=== PATIENT | female | born 1985 | race Caucasian/White ===

== ENCOUNTER → 2016-10-19 | Outpatient (CLI) | payer OTHER | LOC: FIMAGING 13:35 | PROVIDERS: ATTEND Obstetrics & Gynecology | DX: Z34.02 Encounter for supervision of normal first pregnancy, second trimester (principal); Z3A.19 19 weeks gestation of pregnancy ==

== ENCOUNTER → 2016-12-21 | Outpatient (CLI) | payer OTHER | LOC: FIMAGING 12:54 | PROVIDERS: ATTEND Obstetrics & Gynecology | DX: Z34.83 Encounter for supervision of other normal pregnancy, third trimester (principal); Z3A.28 28 weeks gestation of pregnancy ==

== ENCOUNTER 2017-03-12 17:26 | Inpatient (IN) | payer OTHER ==
[2017-03-12] MEDS ORDERED: OLIVE OIL 118 ML BTL MISC PRN (18:18)
[2017-03-12] MEDS ORDERED: EPSOM SALT 454 GM TP PRN (18:18)
[2017-03-12] MEDS ORDERED: TERBUTALINE SULFATE 1 MG/ML VIAL IV PRN (18:18)
[2017-03-12] MEDS ORDERED: LR 1,000 ML IV PRN (18:18)
[2017-03-12] MEDS ORDERED: OXYTOCIN/RINGERS LACTATE 1,000 ML IV PRN (18:18)
--- NOTE | 2017-03-12 18:39 | GHP ---
[f rep st] PREOP HISTORY AND PHYSICAL DATE OF ADMISSION: 03/12/2017 CHIEF COMPLAINT: Labor. HPI: The patient is a 31-year-old, G2, P1, female who is at 40-2/7 weeks' gestation by 9 week ultrasound, who presents with complaints of painful contractions. She is anay every 5-7 minutes. She has an uncomplicated . PAST MEDICAL HISTORY: She has no significant medical problems. PAST SURGICAL HISTORY: She has no surgical history. PAST OBSTETRICAL HISTORY: She has 1 previous that was 7 pounds. REVIEW OF SYSTEMS: Positive for bloody show and painful contractions. PHYSICAL EXAMINATION: VITAL SIGNS: Stable. GENERAL: She is uncomfortable with contractions. ABDOMEN: Gravid, nontender. : Her cervical exam is 5, complete, and 0. heart tones are in the 130s with a moderate variability and positive accelerations. LABS: Significant for A positive, antibody screen negative, rubella non immune , RPR nonreactive, hepatitis B surface antigen negative, HIV negative, gonorrhea and chlamydia negative. 1-hour Glucola not listed and GBS is negative on 02/08. ASSESSMENT/PLAN: This is a 31-year-old, G2, P1, female who is at 40-2/7 weeks' gestation in active labor. well-being is reassuring. GBS is negative. Expected . /[id number]/MODL MTDD
[2017-03-12 18:54] LABS: % IMMATURE GRANULYOCYTES 0.6 % (0.0-1.1); ABSOLUTE IMMATURE GRANULOCYTES 0.06 10^3/uL (0.00-0.10); ADD DIFF? NO; ADD MORPH? NO; ADD SCAN? NO; ATYPICAL LYMPHOCYTE FLAG 0 (0-99); FRAGMENT RBC FLAG 0 (0-99); HEMATOCRIT 39.6 % (38.0-47.0); HEMOGLOBIN 13.4 g/dL (12.6-16.3); LEFT SHIFT FLG 0 (0-99); LIPEMIA HEMOLYSIS FLAG 90 (0-99); MEAN CELL HEMOGLOBIN 31.3 pg (27.9-34.1); MEAN CELL HEMOGLOBIN CONCENTR. 33.8 g/dL (32.4-36.7); MEAN CELL VOLUME 92.5 fL (81.5-99.8); MEAN PLATELET VOLUME 11.1 fL (8.7-11.7); PLATELET CLUMPS FLAG 0 (0-99); PLATELET COUNT 111 10^3/uL (150-400); RED BLOOD CELL COUNT 4.28 10^6/uL (4.18-5.33); RED CELL DISTRIBUTION WIDTH 14.5 % (11.5-15.2)
--- NOTE | 2017-03-12 22:07 | OBPROG ---
OBG Labor Progress Note Assessment/Plan: Assessment: 31 yo female, @ 40 2/7, active labor, doing well Plan: 03/12/17 22:05 FWB reassuring. GBS neg. Labor progressing. Expect . Subjective: 31 yo female, @ 40 2/7, active labor, doing well-using hypobirthing technique. Objective: 03/12/17 18:15 Patient ABO/Rh A POSITIVE 03/12/17 18:15 VSS - SVE Dilation (cm): 8 Effacement (%): 100 Station: 0 Meyer Current Contraction Pattern: Regular FHR (bpm): 110 FHR Pattern Variability: Moderate FHR Category: 2 Oxytocin Orders Assessment - Pre-Induction/Augmentation Assessment Gestational Age: 40 week(s) and 2 day(s) ICD10 Worksheet Patient Problems: Problems Problem Status Onset Labor established Acute
[2017-03-12] MEDS ORDERED: TERBUTALINE SULFATE 1 MG/ML VIAL ONE (22:36)
[2017-03-12] MEDS ORDERED: LIDOCAINE 1% 300 MG/30 ML SDV ONE (22:36)
[2017-03-12] MEDS ORDERED: AMMONIA AROMATIC 1 EACH AMP IH ONE (22:36)
[2017-03-12] MEDS ORDERED: OLIVE OIL 118 ML BTL ONE (22:36)
[2017-03-12] MEDS ORDERED: OXYTOCIN 10 UNIT/ML VIAL ONE (22:37)
[2017-03-12] MEDS ORDERED: MISOPROSTOL 200 MCG TAB ONE (22:37)
[2017-03-13] MEDS ORDERED: ACETAMINOPHEN 325 MG TAB PO PRN
[2017-03-13] MEDS ORDERED: HYDROCORTISONE 0.5% CREAM TP PRN
[2017-03-13] MEDS ORDERED: SIMETHICONE 80 MG TAB CHEW PO PRN
--- NOTE | 2017-03-13 | OBDEL ---
Info Type: Vaginal GBS+: No Indications for Delivery: Spontaneous Labor, SROM Vaginal Delivery - Labor and Delivery Onset of Contractions Date: 03/12/17 Onset of Contractions Time: 11:00 Onset of Contractions Type: Spontaneous Rupture of Membranes Date: 03/12/17 Rupture of Membranes Time: 23:00 Rupture of Membranes Type: Spontaneous Amniotic Fluid Color: Clear Dilation Complete Date: 03/12/17 Dilation Complete Time: 22:57 Placenta Delivery Date: 03/12/17 Placenta Delivery Time: 23:30 Total Hours of Labor: 12 Laceration: 2nd Degree Repair: 3-0, Vicryl Vaginal Sponge Count Correct: Yes Vaginal Needle Count Correct: Yes Vaginal Sweep Performed: No EBL: 300 ml Delivery Events: None - Medications Labor Augmentation/Induction Methods Used: None [place] Data [place] Delivery Date: 03/12/17 Delivery Time: 23:20 RANDA: 03/10/17 Gestational Age: 40 week(s) and 3 day(s) Sex of Infant: Female Score (1 Min): 8 Score (5 Min): 9 ICD10 Worksheet Patient Problems: Problems Problem Status Onset Labor established Acute
--- NOTE | 2017-03-13 00:02 | OBGCSDC ---
General Delivery Information - General Info : 2 Para: 1 Abortions: 0 Delivery Physician/CNM: Fide Villarreal Admission Date: 03/12/17 Labs: Patient ABO/Rh A POSITIVE 03/12/17 18:15 Hct 39.6 % (38.0-47.0) 03/12/17 18:15 Vaginal - Diagnosis Labor: Spontaneous Rupture of Membranes Type: Spontaneous Amniotic Fluid Color: Clear Laceration: 2nd Degree Repair: 3-0, Vicryl Delivery Events: None - Hospital Course Antepartum: none Intrapartum: none : none - Delivery Type: Vaginal EBL: 300 ml [place] Data Meyer Delivery Date: 03/12/17 Delivery Time: 23:20 RANDA: 03/10/17 Gestational Age: 40 week(s) and 3 day(s) Sex of : Female Score (1 Min): 8 Score (5 Min): 9
[2017-03-13] MEDS: IBUPROFEN 600 MG TAB PO PRN ×3 (00:05→11:44)
[2017-03-13] MEDS ORDERED: MEASLES,MUMPS&RUBELLA VACC/PF 0.5 ML VIAL SC ONE (11:02)
--- NOTE | 2017-03-13 11:02 | OBPP ---
Progress Note Assessment/Plan: Assessment: Pt is a 31 y/o female PPD#1 s/p - doing well Plan: 1) Routine PP care 2) Mild thrombocytopenia w/ platelet count of 111K on admission - will recheck to assure improving trend, BP's normal and no PIH symptoms 3) A+, rubella NI, will order MMR. 03/13/17 11:01 Subjective: Pt is feeling well, ambulating, voiding, lochia diminishing and pain well controlled. Objective: 03/12/17 18:15 Patient ABO/Rh A POSITIVE 03/12/17 18:15 Temp Pulse Resp BP Pulse Ox 36.6 C 82 16 98/61 L 97 03/13/17 08:30 03/13/17 08:30 03/13/17 08:30 03/13/17 08:30 03/13/17 08:30 Uterine Position/Fundal Height: At Umbilicus Uterine Tone: Firm
[2017-03-13] MEDS: DOCUSATE SODIUM 100 MG CAP PO PRN (11:44)
[2017-03-13 11:59] LABS: % IMMATURE GRANULYOCYTES 0.5 % (0.0-1.1); ABSOLUTE IMMATURE GRANULOCYTES 0.06 10^3/uL (0.00-0.10); ADD DIFF? NO; ADD MORPH? NO; ADD SCAN? NO; ATYPICAL LYMPHOCYTE FLAG 0 (0-99); FRAGMENT RBC FLAG 0 (0-99); HEMATOCRIT 36.1 % (38.0-47.0); HEMOGLOBIN 12.4 g/dL (12.6-16.3); LEFT SHIFT FLG 10 (0-99); LIPEMIA HEMOLYSIS FLAG 90 (0-99); MEAN CELL HEMOGLOBIN CONCENTR. 34.3 g/dL (32.4-36.7); PLATELET CLUMPS FLAG 0 (0-99); PLATELET COUNT 117 10^3/uL (150-400); RED BLOOD CELL COUNT 3.88 10^6/uL (4.18-5.33); RED CELL DISTRIBUTION WIDTH 14.5 % (11.5-15.2)
[2017-03-14] MEDS: IBUPROFEN 600 MG TAB PO PRN ×2 (00:07→06:03)
--- NOTE | 2017-03-14 08:38 | OBGCSDC ---
General Delivery Information - General Info : 2 Para: 2 Delivery Physician/CNM: Fide Villarreal Admission Date: 03/12/17 Labs: Patient ABO/Rh A POSITIVE 03/12/17 18:15 Hct 36.1 % (38.0-47.0) L 03/13/17 11:50 Vaginal - Diagnosis Labor: Spontaneous Presentation at Delivery: Vertex Rupture of Membranes Type: Spontaneous Amniotic Fluid Color: Clear Laceration: 2nd Degree Repair: 3-0, Vicryl Delivery Events: None - Operations/Procedures L&D Analgesia/Anesthesia Type: Local - Delivery L&D Analgesia/Anesthesia Type: Local [place] Data Meyer Delivery Date: 03/12/17 Delivery Time: 23:20 RANDA: 03/10/17 Gestational Age: 40 week(s) and 4 day(s) Sex of Infant: Female [place] Weight (gm): 4058 kg Score (1 Min): 8 Score (5 Min): 9 Discharge Information - Discharge Information Discharge Medications: Ibuprofen, Vitamins Condition: Good Instruction/Follow Up: Six Weeks Discharge Physician/CNM: Heaven Avilez
[2017-03-14 08:39] VITALS: BP 99/59; PULSE 80; RESP 15; TEMP 97.5; O2SAT 96
[2017-03-14] MEDS: DOCUSATE SODIUM 100 MG CAP PO PRN (08:55)
== END 2017-03-14 11:20 | disposition home or self-care (01) | DRG 775 ==
LOC: FLD 17:26 → FOB 03-13 01:37
PROVIDERS: ADMIT Obstetrics & Gynecology; ATTEND Obstetrics & Gynecology
PROC: 3E0134Z Introduction of Serum, Toxoid and Vaccine into Subcutaneous Tissue, Percutaneous Approach (ICD-10-PCS; principal; 2017-03-12)
PROC: 10E0XZZ Delivery of Products of Conception, External Approach (ICD-10-PCS; principal; 2017-03-12)
PROC: 0KQM0ZZ Repair Perineum Muscle, Open Approach (ICD-10-PCS; principal; 2017-03-12)
DX: O70.1 Second degree perineal laceration during delivery (principal); O99.89 Other specified diseases and conditions complicating pregnancy, childbirth and the puerperium; D69.6 Thrombocytopenia, unspecified; Z67.11 Type A blood, Rh negative; Z3A.40 40 weeks gestation of pregnancy; Z37.0 Single live birth; Z23 Encounter for immunization
CPT/HCPCS: J2590; J3105